=== PATIENT | female | born 1960 | race Caucasian/White ===

== ENCOUNTER 2021-09-10 09:12 | Day surgery (SDC) | payer OTHER ==
[~2021-09-10] VITALS: Ht 157.5 cm; Wt 62.6 kg
[2021-09-10] MEDS ORDERED: MIDAZOLAM 2 MG/2 ML VIAL ONE (11:34)
[2021-09-10] MEDS ORDERED: diphenhydrAMINE 50 MG/ML VIAL ONE (11:34)
[2021-09-10] MEDS ORDERED: fentaNYL citrate 0.05 MG/ML VIAL ONE (11:39)
[2021-09-10] MEDS ORDERED: MIDAZOLAM 2 MG/2 ML VIAL IVP ONE (13:30)
[2021-09-10] MEDS ORDERED: fentaNYL citrate 0.05 MG/ML VIAL IVP ONE (13:30)
== END 2021-09-10 12:46 | disposition home or self-care (01) ==
LOC: MDS 09:12 → MMU 10:14 → MDS 12:46
PROVIDERS: ATTEND Internal Medicine Gastroenterology
DX: K62.5 Hemorrhage of anus and rectum (principal); D12.3 Benign neoplasm of transverse colon; K64.8 Other hemorrhoids; E78.00 Pure hypercholesterolemia, unspecified; Z79.899 Other long term (current) drug therapy; Z20.822 Contact with and (suspected) exposure to COVID-19
CPT/HCPCS: 45385; 87426; 88305; J2250; J3010; J1200